=== PATIENT | female | born 1995 | race Caucasian/White ===

== ENCOUNTER 2017-03-01 17:02 | Emergency (ER) | payer MEDICAID ==
[~2017-03-01] VITALS: Ht 165.1 cm; Wt 94.5 kg
[2017-03-01 17:13] VITALS: Ht 165.1 cm; Wt 94.5 kg
[2017-03-01 21:01] LABS: BASOPHIL % 1.5 % (0-2); PLATELET COUNT 392 x10^3mcL (130-400); RED CELL DISTRIBUTION WIDTH 13.6 % (11.5-14.5)
[2017-03-01 21:09] LABS: CALCIUM 9.3 mg/dL (8.5-10.1); CARBON DIOXIDE 29.9 mmol/L (21-32); CHLORIDE SERUM 100 mmol/L (98-107); CREATININE SERUM 0.7 mg/dL (0.6-1.0); GFR1 > 60 mL/min; GLUCOSE SERUM 88 mg/dL (74-106); POTASSIUM SERUM 3.8 mmol/L (3.5-5.1); SODIUM SERUM 139 mmol/L (136-145)
[2017-03-01 21:14] LABS: ALBUMIN 4.3 g/dL (3.4-5.0); ALKALINE PHOSPHATASE 136 U/L (46-116); ALT/SGPT 199 U/L (14-59); AST/SGOT 155 U/L (15-37); BILIRUBIN TOTAL 0.7 mg/dL (0.20-1.00)
[2017-03-01 21:16] LABS: TOTAL PROTEIN, SERUM 9.5 g/dL (6.4-8.2)
[2017-03-01 21:34] LABS: microscopic required? NO
[2017-03-01 22:00] LABS: UA SPECIFIC GRAVITY >=1.030 (1.005-1.035); urine erythrocyte NEGATIVE (NEGATIVE)
[2017-03-02 01:32] VITALS: BP 131/79
== END 2017-03-02 01:32 | disposition home or self-care (01) ==
LOC: ED 17:02
PROVIDERS: Emergency Medicine
DX: B17.9 Acute viral hepatitis, unspecified (principal); K59.00 Constipation, unspecified; E66.9 Obesity, unspecified
CPT/HCPCS: 36415; Q0092

== ENCOUNTER 2018-01-27 08:26 | Emergency (ER) | payer MEDICAID ==
[~2018-01-27] VITALS: Ht 165.1 cm; Wt 95.9 kg
[2018-01-27 08:32] VITALS: Ht 165.1 cm; Wt 95.9 kg
[2018-01-27 09:06] LABS: BASOPHIL % 0.6 % (0-2); PLATELET COUNT 352 x10^3mcL (130-400)
[2018-01-27 10:31] VITALS: BP 115/78
== END 2018-01-27 10:40 | disposition home or self-care (01) ==
LOC: ED 08:26
PROVIDERS: Emergency Medicine
DX: N93.8 Other specified abnormal uterine and vaginal bleeding (principal)
CPT/HCPCS: 36415; Q0092